=== PATIENT | male | born 1985 | race African-American/Black ===

== ENCOUNTER 2019-02-12 15:57 | Emergency (ER) | payer SELFPAY ==
[2019-02-12] MEDS ORDERED: Ketorolac 30 MG/ML SDV IVPUSH ONE (16:44)
[2019-02-12] MEDS ORDERED: LORazepam 2 MG/ML SDV IVPUSH ONE (16:44)
--- NOTE | 2019-02-12 18:01 | EDM.PDOC ---
ED HPI GENERAL MEDICAL PROBLEM - General Chief Complaint: Behavioral/Psych Stated Complaint: CHEST PAIN Time Seen by Provider: 02/12/19 16:09 Source of Information: Reports: Patient History Limitations: Reports: No Limitations - History of Present Illness INITIAL COMMENTS - FREE TEXT/NARRATIVE: 34 y/o male presents to ER with cc chest pain for the past few days. He reports the pain started on the right side and radiates to left side. He denies SOB, dyspnea, chills, fever. He does report being very anxious and upset for "something he did and regrets." He is crying and upset when saying this. He reports just came here from [place]. He is accompanied by his sister. He reports he was recently on Vesicare but stopped taking it because he didn' t like the way he felt. Onset Date: 02/09/19 Onset Time: 09:00 Duration: Intermittent Location: Reports: Chest Quality: Reports: Ache Worsens with: Reports: None Associated Symptoms: Reports: Other (anxious). Denies: Chest Pain, Cough, Headaches, Nausea/Vomiting, Rash, Seizure, Shortness of Breath, Weakness Left Chest Pain Score (Numeric/FACES): 7 - Related Data Allergies Allergy/AdvReac Type Severity Reaction Status Date / Time No Known Allergies Allergy Verified 02/12/19 16:13 Home Meds: Home Meds hydrOXYzine pamoate [Vistaril] 25 mg PO Q6H PRN 5 Days #20 cap 02/12/19 [Rx] Past Medical History - Past Health History Medical/Surgical History: Denies Medical/Surgical History Social & Family History - Tobacco Use Smoking Status *Q: Never Smoker - Caffeine Use Caffeine Use: Reports: None - Recreational Drug Use Recreational Drug Use: No ED ROS GENERAL - Review of Systems Review Of Systems: See Below Constitutional: Denies: Fever, Chills HEENT: Reports: No Symptoms Respiratory: Denies: Shortness of Breath Cardiovascular: Reports: Chest Pain Endocrine: Reports: Fatigue GI/Abdominal: Reports: Abdominal Pain : Reports: No Symptoms Musculoskeletal: Reports: No Symptoms Skin: Reports: No Symptoms Neurological: Reports: No Symptoms Psychiatric: Reports: Anxiety. Denies: Hallucinations, Homicidal Ideation, Suicidal Ideation Hematologic/Lymphatic: Reports: No Symptoms Immunologic: Reports: No Symptoms - Physical Exam Exam: See Below Exam Limited By: No Limitations General Appearance: Alert, WD/WN, No Apparent Distress Ears: Normal External Exam, Normal Canal, Hearing Grossly Normal, Normal TMs Nose: Normal Inspection, Normal Mucosa, No Blood Throat/Mouth: Normal Inspection, Normal Lips, Normal Teeth, Normal Gums, Normal Oropharynx, Normal Voice, No Airway Compromise Head Exam: Atraumatic, Normocephalic Neck: Normal Inspection, Supple, Non-Tender, Full Range of Motion Respiratory/Chest: No Respiratory Distress, Lungs Clear, Normal Breath Sounds, No Accessory Muscle Use Cardiovascular: Normal Peripheral Pulses, Regular Rate, Rhythm, No Edema, No Gallop, No JVD, No Murmur, No Rub GI/Abdominal: Normal Bowel Sounds, Soft, Non-Tender, No Organomegaly, No Distention, No Abnormal Bruit, No Mass, Pelvis Stable Neuro Exam (Abbreviated): Alert, Oriented, CN II-XII Intact, Normal Cognition, Normal Gait Back Exam: Normal Inspection, Full Range of Motion Extremities: Normal Inspection, Normal Range of Motion, Non-Tender, No Pedal Edema, Normal Capillary Refill Psychiatric: Normal Affect, Normal Mood Skin Exam: Warm, Dry, Intact, Normal Color, No Rash EKG INTERPRETATION EKG Date: 02/12/19 Time: 16:46 Rhythm: NSR Course - Vital Signs Last Recorded V/S: Last Vital Signs Temp 98.6 F 02/12/19 16:11 Pulse 91 02/12/19 16:11 Resp 29 H 02/12/19 16:11 BP 134/93 H 02/12/19 16:11 Pulse Ox 100 02/12/19 16:11 - Orders/Labs/Meds Orders: Active Orders 24 hr Category Date Time Status EKG Documentation Completion [RC] STAT Care 02/12/19 16:44 Active Chest 2V [CR] Stat Exams 02/12/19 16:44 Taken Potassium Chloride [Klor-Con M20] Med 02/12/19 18:08 Once 40 meq PO ONETIME ONE Medication Orders Potassium Chloride (Klor-Con M20) 40 meq PO ONETIME ONE Stop: 02/12/19 18:09 Labs: Laboratory Tests 02/12/19 02/12/19 Range/Units 17:25 17:25 WBC 5.87 (4.23-9.07) K/mm3 RBC 5.40 (4.63-6.08) M/mm3 Hgb 14.8 (13.7-17.5) gm/L Hct 41.8 (40.1-51.0) % MCV 77.4 L (79.0-92.2) fl MCH 27.4 (25.7-32.2) pg MCHC 35.4 (32.2-35.5) g/dl RDW Std Deviation 36.7 (35.1-43.9) fL Plt Count 192 (163-337) K/mm3 MPV 11.5 (9.4-12.3) fl Neut % (Auto) 40.4 (34.0-67.9) % Lymph % (Auto) 49.1 (21.8-53.1) % [place] % (Auto) 9.7 (5.3-12.2) % Eos % (Auto) 0.3 L (0.8-7.0) Baso % (Auto) 0.3 (0.1-1.2) % Neut # (Auto) 2.37 (1.78-5.38) K/mm3 Lymph # (Auto) 2.88 (1.32-3.57) K/mm3 [place] # (Auto) 0.57 (0.30-0.82) K/mm3 Eos # (Auto) 0.02 L (0.04-0.54) K/mm3 Baso # (Auto) 0.02 (0.01-0.08) K/mm3 Sodium 139 (136-145) mEq/L Potassium 3.1 L (3.5-5.1) mEq/L Chloride 103 (98-107) mEq/L Carbon Dioxide 26 (21-32) mEq/L Anion Gap 13.1 (5-15) BUN 11 (7-18) mg/dL Creatinine 1.1 (0.7-1.3) mg/dL Est Cr Clr Drug Dosing TNP Estimated GFR (MDRD) > 60 (>60) mL/min BUN/Creatinine Ratio 10.0 L (14-18) Glucose 83 (74-106) mg/dL Calcium 9.5 (8.5-10.1) mg/dL Total Bilirubin 0.7 (0.2-1.0) mg/dL AST 19 (15-37) U/L ALT 29 (16-63) U/L Alkaline Phosphatase 64 (46-116) U/L Troponin I < 0.017 (0.00-0.056) ng/mL Total Protein 8.2 (6.4-8.2) g/dl Albumin 4.2 (3.4-5.0) g/dl Globulin 4.0 gm/dL Albumin/Globulin Ratio 1.1 (1-2) Meds: Medications Generic Name Dose Route Start Last Admin Trade Name Freq PRN Reason Stop Dose Admin Potassium Chloride 40 meq 02/12/19 18:08 Klor-Con M20 PO 02/12/19 18:09 ONETIME ONE Discontinued Medications Generic Name Dose Route Start Last Admin Trade Name Freq PRN Reason Stop Dose Admin Ketorolac Tromethamine 30 mg 02/12/19 16:44 02/12/19 17:19 Toradol IVPUSH 02/12/19 16:45 30 mg ONETIME ONE Administration Lorazepam 2 mg 02/12/19 16:44 02/12/19 17:20 Ativan IVPUSH 02/12/19 16:45 2 mg ONETIME ONE Administration - Re-Assessments/Exams Free Text/Narrative Re-Assessment/Exam: 02/12/19 18:03 34 y/o male presented to ER with cc right sided chest pain. His EKG revealed NSR, cxr was unremarkable. WBC 5.87 H & H 14.8/41.8 Na + 139 K + 3.1 replacement given chloride 103 co2 26 bun 11 creatine 1.1 glucose 83 troponin 0.017 He received Ativan 2 mg for his anxiety and his condition improved. I will discharge home with Atarax for his anxiety. I will refer to a PCP in the area. Instructed to return to the ER for any new or acute worsening symptoms. Patient verbalized understanding and is comfortable with plan for discharge. He is stable at time of discharge. Departure - Departure Time of Disposition: 18:10 Disposition: Home, Self-Care 01 Condition: Good Clinical Impression: Depressive disorder, Anxiety, Chest pain, atypical - Discharge Information Prescriptions: hydrOXYzine pamoate [Vistaril] 25 mg PO Q6H PRN 5 Days #20 cap PRN Reason: Anxiety Instructions: Nonspecific Chest Pain, [id number], Major Depressive Disorder, Adult, [id number] Referrals: PCP,None [Primary Care Provider] - Eron Diaz MD [Physician] - Forms: ED Department Discharge Additional Instructions: You have been diagnosis with atypical chest pain. Your EKG, chest x-ray and labs were normal. Your potassium level was low. I recommend you eat foods high in potassium like bananas, peanut butter, potatoes. Follow up with Dr. Tyler. Return to the ER for any new or acute worsening symptoms. - My Orders Last 24 Hours: My Active Orders 02/12/19 16:44 EKG Documentation Completion [RC] STAT Chest 2V [CR] Stat 02/12/19 18:08 Potassium Chloride [Klor-Con M20] 40 meq PO ONETIME ONE - Assessment/Plan Last 24 Hours: My Active Orders 02/12/19 16:44 EKG Documentation Completion [RC] STAT Chest 2V [CR] Stat 02/12/19 18:08 Potassium Chloride [Klor-Con M20] 40 meq PO ONETIME ONE
[2019-02-12] MEDS ORDERED: Potassium Chloride 20 MEQ Tab.ER PO ONE (18:08)
--- NOTE | 2019-02-13 11:40 | CR ---
Chest: Two views of the chest were obtained. Comparison: No prior chest x-ray. Heart size and mediastinum are within normal limits. Lungs are clear with no acute parenchymal change. Minimal scoliosis is noted within the spine. Impression: 1. Nothing acute is identified on two-view chest x-ray. Diagnostic code #1
== END 2019-02-12 18:26 | disposition home or self-care (01) ==
LOC: JD.ED 15:57
DX: R07.89 Other chest pain (principal); F32.9 Major depressive disorder, single episode, unspecified; F41.9 Anxiety disorder, unspecified
CPT/HCPCS: 36415; 71046; 80053; 84484; 85025; 93005; 96374; 96375; 99285; A9270; J1885; J2060; 93010; 99284